=== PATIENT | female | born 2000 | race Caucasian/White ===

== ENCOUNTER 2024-04-19 17:31 | Emergency (ER) | payer OTHER ==
--- OUTSIDE RECORDS SUMMARY | 2024-04-19 17:37 | XMS REPORT | Continuity of Care Document ---
Author Name Unknown Address [address] [facility] [address] [place] [address] [facility] thconnect Address [address] [facility] [address] [place] [address] Care Team Providers Care Map Mounter Name Role Phone ZAY TAVERAS Primary Care Physician Unavailab le Zay Taveras Attending Clinician Unavailable Tiarra Benitez Attending Clinician Unavailable RADIOLOGY Attending Clinician Unavailable Radiology Attending Clinician Unavailable ZAY TAVERAS Admitting Clinician Unavailable Payers Payer Name Policy Type Policy Number Effective Date Expirati on Date Source [employer] [place] [id number] 2021 00:00:00 [facility] C1 [id number] [facility] Problems Condition Name Condition Details Condition Category Status Onset Date Resolution Date Last Treatment Date Treating Clinician Comments Source [id number] Decreased vision Problem [facility] Seasonal allergic rhinitis Seasonal allergic rhinitis Problem [facility] Migraine Migraines Problem Commo n [facility] Mixed anxiety and depressive disorder Depression with anxiety Problem [facility] [id number] Primary insomnia Problem [facility] [id number] Morbid (severe) obesity due to excess calories Problem [facility] Gastroesop hageal reflux disease GERD (gastroeso phageal reflux disease) Problem [facility] Hypothyroi dism Hypothyroi dism Problem [facility] NAFLD - Nonalcohol ic fatty liver disease Fatty liver disease, nonalcohol ic Problem [facility] [id number] Body mass index [BMI]40.0- 44.9, adult Problem [facility] Allergies, Adverse Reactions, Alerts Allergy Name Allergy Type Status Severity Reaction(s) Onset Date Inactive Date Treating Clinician Comments Source NO KNOWN ALLERGIE S Drug Class Active Univers [facility] Social History Social Habit Start Date Stop Date Quantity Comments Source History of Tobacco Use [facility] Sex Assigned At [facility] Smoking Status Start Date Stop Date Source Tobacco smoking consumption unknown [facility] Never Smoker [facility] Medications Ordered Medication Name Filled Medication Name Start Date Stop Date Current Medication? Ordering Clinician Indication Dosage Frequency Signature (SIG) Comments Components Source Azithromyci n 250 MG Azithromyci n 250 MG 4-0 03-21 00:00: 00 No QD Azithromyc in 250 MG Naproxen 500 MG Naproxen 500 MG No BID Naproxen 500 MG Blisovi 24 Fe 1-20 MG-MCG(24) Blisovi 24 Fe 1-20 MG-MCG(24) No 1{table t} QD Blisovi 24 Fe 1-20 MG-MCG(24) Acetaminoph en ER 650 MG Acetaminoph en ER 650 MG No 2{table ts_as_n eeded} TID Acetaminop hen ER 650 MG Levothyroxi ne Sodium 75 MCG Levothyroxi ne Sodium 75 MCG No QD Levothyrox ine Sodium 75 MCG Xyzal Allergy 24HR 5 MG Xyzal Allergy 24HR 5 MG No 1{table t_in_th e_eveni ng} QD Xyzal Allergy 24HR 5 MG Trintellix 10 MG Trintellix 10 MG No 1{table t} QD Trintellix 10 MG buPROPion HCl ER (XL) 150 MG buPROPion HCl ER (XL) 150 MG No 1{table t_in_th e_morni ng} QD buPROPion HCl ER (XL) 150 MG hydrOXYzine HCl 10 MG hydrOXYzine HCl 10 MG No 1{table t_as_ne eded} QD hydrOXYzin e HCl 10 MG OLANZapine 2.5 MG OLANZapine 2.5 MG No 1{table t} QD OLANZapine 2.5 MG Benzonatate 200 MG Benzonatate 200 MG No 1{capsu le_as_n eeded} Benzonatat e 200 MG methylPREDN ISolone 4 MG methylPREDN ISolone 4 MG No QD methylPRED NISolone 4 MG Immunizations Ordered Immunization Name Filled Immunization Name Date Status Comments Source Boostrix (Tdap) Boostrix (Tdap) 2022-05-20 14:31:00 Completed [facility] Boostrix (Tdap) Boostrix (Tdap) 2022-05-20 14:31:00 Completed [facility] Boostrix (Tdap) Boostrix (Tdap) 2022-05-20 14:31:00 Completed [facility] Boostrix (Tdap) Boostrix (Tdap) Unknown Completed [facility] Fluarix Fluarix Unknown Completed [facility] Boostrix (Tdap) Boostrix (Tdap) Unknown Completed [facility] Fluarix Fluarix Unknown Completed [facility] Boostrix (Tdap) Boostrix (Tdap) Unknown Completed [facility] Fluarix (IIV4) - SDS - 0.5mL Fluarix (IIV4) - SDS - 0.5mL Unknown Completed [facility] Boostrix (Tdap) Boostrix (Tdap) Unknown Completed [facility] Fluarix (IIV4) - SDS - 0.5mL Fluarix (IIV4) - SDS - 0.5mL Unknown Completed [facility] Boostrix (Tdap) Boostrix (Tdap) Unknown Completed [facility] Fluarix (IIV4) - SDS - 0.5mL Fluarix (IIV4) - SDS - 0.5mL Unknown Completed [facility] Boostrix (Tdap) Boostrix (Tdap) Unknown Completed [facility] Fluarix (IIV4) - SDS - 0.5mL Fluarix (IIV4) - SDS - 0.5mL Unknown Completed [facility] Boostrix (Tdap) Boostrix (Tdap) Unknown Completed [facility] Vital Signs Vital Name Observation Time Observation Value Comments S [place] height 2024-03-21 09:10:00 60.5 [in_i] Comm on [facility] weight 2024-03-21 09:10:00 235 [lb_av] Comm on [facility] bmi 2024-03-21 09:10:00 45.13 kg/m2 Comm on [facility] height 2023-09-15 13:00:00 60.5 [in_i] Comm on [facility] weight 2023-09-15 13:00:00 218 [lb_av] Comm on [facility] bmi 2023-09-15 13:00:00 41.87 kg/m2 Comm on [facility] height 2023-08-11 15:30:00 60.5 [in_i] Comm on [facility] weight 2023-08-11 15:30:00 228.0 [lb_av] Co mmon [facility] temperature 2023-08-11 15:30:00 97.5 [degF] Com mon [facility] bmi 2023-08-11 15:30:00 43.79 kg/m2 Comm on [facility] oximetry 2023-08-11 15:30:00 99 % Commo n [facility] respiratory rate 2023-08-11 15:30:00 16 /min [facility] blood pressure systolic 2023-08-11 15:30:00 128 mm[Hg] [facility] blood pressure diastolic 2023-08-11 15:30:00 86 mm[Hg] Common [facility] height 2023-03-30 15:50:00 60.5 [in_i] Comm on [facility] weight 2023-03-30 15:50:00 228.3 [lb_av] Co mmon [facility] temperature 2023-03-30 15:50:00 98.1 [degF] Com mon [facility] bmi 2023-03-30 15:50:00 43.85 kg/m2 Comm on [facility] oximetry 2023-03-30 15:50:00 99 % Commo n [facility] respiratory rate 2023-03-30 15:50:00 17 /min [facility] blood pressure systolic 2023-03-30 15:50:00 122 mm[Hg] Common [facility] blood pressure diastolic 2023-03-30 15:50:00 75 mm[Hg] [facility] height 2022-12-10 09:30:00 60.5 [in_i] Comm on [facility] weight 2022-12-10 09:30:00 230 [lb_av] Comm on [facility] temperature 2022-12-10 09:30:00 98 [degF] Comm on [facility] bmi 2022-12-10 09:30:00 44.17 kg/m2 Comm on [facility] blood pressure systolic 2022-12-10 09:30:00 130 mm[Hg] [facility] blood pressure diastolic 2022-12-10 09:30:00 72 mm[Hg] [facility] height 2022-09-09 14:30:00 60.5 [in_i] Comm on [facility] weight 2022-09-09 14:30:00 230.2 [lb_av] Co mmon [facility] temperature 2022-09-09 14:30:00 97.2 [degF] Com [facility] bmi 2022-09-09 14:30:00 44.21 kg/m2 Comm on [facility] oximetry 2022-09-09 14:30:00 99 % Commo n [facility] respiratory rate 2022-09-09 14:30:00 18 /min [facility] blood pressure systolic 2022-09-09 14:30:00 133 mm[Hg] Common [facility] t [facility] blood pressure diastolic 2022-09-09 14:30:00 79 mm[Hg] [facility] height 2022-05-20 14:10:00 60.5 [in_i] Comm on [facility] weight 2022-05-20 14:10:00 231 [lb_av] Comm on [facility] temperature 2022-05-20 14:10:00 97.7 [degF] Com mon [facility] bmi 2022-05-20 14:10:00 44.37 kg/m2 Comm on [facility] oximetry 2022-05-20 14:10:00 100 % Commo n [facility] respiratory rate 2022-05-20 14:10:00 16 /min [facility] blood pressure systolic 2022-05-20 14:10:00 135 mm[Hg] Common [facility] t [facility] blood pressure diastolic 2022-05-20 14:10:00 86 mm[Hg] [facility] height 2022-02-19 13:00:00 60 [in_i] Commo n [facility] weight 2022-02-19 13:00:00 228.0 [lb_av] Co mmon [facility] temperature 2022-02-19 13:00:00 98.1 [degF] Com mon [facility] bmi 2022-02-19 13:00:00 44.52 kg/m2 Comm on [facility] oximetry 2022-02-19 13:00:00 96 % Commo n [facility] respiratory rate 2022-02-19 13:00:00 17 /min [facility] blood pressure systolic 2022-02-19 13:00:00 130 mm[Hg] [facility] blood [facility] diastolic 2022-02-19 13:00:00 76 mm[Hg] Common [facility] height 2021-11-20 13:20:00 60 [in_i] Commo n [facility] weight 2021-11-20 13:20:00 226.1 [lb_av] Co mmon [facility] temperature 2021-11-20 13:20:00 97.7 [degF] Com mon [facility] bmi 2021-11-20 13:20:00 44.15 kg/m2 Comm on [facility] oximetry 2021-11-20 13:20:00 98 % Commo n [facility] respiratory rate 2021-11-20 13:20:00 18 /min [facility] blood pressure systolic 2021-11-20 13:20:00 134 mm[Hg] [facility] blood pressure diastolic 2021-11-20 13:20:00 87 mm[Hg] Common [facility] height 2021-08-08 13:00:00 60 [in_i] Commo n [facility] weight 2021-08-08 13:00:00 218 [lb_av] Comm on [facility] temperature 2021-08-08 13:00:00 98 [degF] Comm on [facility] bmi 2021-08-08 13:00:00 42.57 kg/m2 Comm on [facility] Procedures Procedure Date / Time Performed Performing Clinician Source XR SPINE THORACIC 2 VW 2022-05-20 20:48:19 Gerardo Taveras [facility] XR HIP 1 VW BILATERAL 2022-05-20 20:48:19 Alice Taveras [facility] XR PELVIS 3+ VW 2022-05-20 20:48:19 Zay Taveras Un [facility] XR CERVICAL SPINE 2 VW 2022-05-20 20:48:19 Gerardo Taveras [facility] XR LUMBAR SPINE 2 2022-05-20 20:48:19 Zay Taveras [facility] NOTICE OF BILLING PRACTICES FOR MEDICARE PATIENTS 2022-05-20 20:18:36 Doctor Unassigned, [facility] PATIENT FINANCIAL POLICY 2022-05-20 20:18:15 Doctor Unassigned, [facility] NO SHOW OR MISSED APPOINTMENT POLICY ACKNOWLEDGEMENT 2022-05-20 20:17:46 Doctor Unassigned, [facility] NOTICE OF PRIVACY PRACTICES 2022-05-20 20:17:28 Doctor Unassigned, [facility] CONSENT/REFUSAL FOR DIAGNOSIS AND TREATMENT 2022-05-20 20:17:07 Doctor Unassigned, [facility] ASSIGNMENT OF BENEFITS 2022-05-20 20:16:48 Docto r Unassigned, [facility] Encounters Start Date/Time End Date/Time Encounter Type Admission Type Attending [facility] Facility Care Department Encounter ID Source 2024-04-19 13:20:00 Outpatient Taveras, [facility] [id number] [facility] 2024-03-28 11:30:00 Outpatient Taveras, [facility] [id number] [facility] 2022-04-15 13:59:02 [facility] [id number] [facility] 2021-11-20 13:12:03 [facility] [id number] [facility] 2021-11-13 14:36:48 [facility] [id number] [facility] 2021-11-13 13:28:21 [facility] [id number] [facility] 2021-11-13 12:42:08 [facility] [id number] [facility] 2021-11-13 12:41:43 Outpatient Emmanuel, Tiarra STLMLC STL[facility] [id number] [facility] 2021-11-13 12:38:30 Outpatient Emmanuel, Tiarra STLMLC STLMLC [id number] [facility] 2021-11-13 12:36:16 Outpatient Emmanuel, Tiarra STLMLC STL[facility] [id number] [facility] 2021-11-13 12:26:38 Outpatient Emmanuel, Tiarra STLMLC STL[facility]C [id number] [facility] 2021-11-13 12:15:20 Outpatient Memanuel, Tiarra STLMLC ST[facility]C [id number] [facility] 2024-03-31 00:00:00 2024-03-31 00:00:00 (WEB) STLMLC STLMLC [id number] [facility] 2024-03-31 00:00:00 2024-03-31 00:00:00 (WEB) STLMLC STLMLC [id number] [facility] 2024-03-31 00:00:00 2024-03-31 00:00:00 (WEB) STLMLC STLMLC [id number] [facility] 2024-03-28 00:00:00 2024-03-28 00:00:00 (TEL) STLMLC STLMLC [id number] [facility] 2024-03-21 00:00:00 2024-03-21 00:00:00 OFFICE VISIT ESTAB PT LEVEL 3 STLMLC STLMLC [id number] [facility] 2024-03-21 00:00:00 2024-03-21 00:00:00 (TEL) STLMLC STLMLC [id number] [facility] 2023-09-15 00:00:00 2023-09-15 00:00:00 OFFICE VISIT ESTAB PT LEVEL 3 [facility]LML[facility] STLMLC [id number] [facility] 2023-08-11 00:00:00 2023-08-11 00:00:00 PREV VISIT EST AGE 18-39 STLMLC STLMLC [id number] [facility] 2023-07-30 00:00:00 2023-07-30 00:00:00 (TEL) STLMLC STLMLC [id number] [facility] 2023-03-30 00:00:00 2023-03-30 00:00:00 OFFICE VISIT ESTAB PT LEVEL 4 STLMLC STLMLC [id number] [facility] 2023-03-30 00:00:00 2023-03-30 00:00:00 (TEL) STLMLC STLMLC [id number] [facility] 2022-12-10 00:00:00 2022-12-10 00:00:00 OFFICE VISIT ESTAB PT LEVEL 4 STLMLC STLMLC [id number] [facility] 2022-09-09 00:00:00 2022-09-09 00:00:00 OFFICE VISIT ESTAB PT LEVEL 4 STLMLC STLMLC [id number] [facility] 2022-09-09 00:00:00 2022-09-09 00:00:00 (TEL) STLMLC STLMLC [id number] [facility] 2022-05-20 15:15:47 2022-05-20 23:59:00 Outpatient R RADIOLOGY [facility] [id number] [facility] 2022-05-20 15:15:00 2022-05-20 23:59:00 Hospital Encounter Radiology [facility] [id number] [facility] 2022-05-20 00:00:00 2022-05-20 00:00:00 (WELLNESS) Wellness Visit STLMLC STLMLC [id number] [facility] 2022-02-19 00:00:00 2022-02-19 00:00:00 OFFICE VISIT ESTAB PT LEVEL 4 STLMLC STLMLC [id number] [facility] 2022-01-23 00:00:00 2022-01-23 00:00:00 (TEL) STLMLC STLMLC [id number] [facility] 2021-11-20 00:00:00 2021-11-20 00:00:00 OFFICE VISIT ESTAB PT LEVEL 4 [facility]LMLC STLMLC [id number] [facility] 2021-08-08 00:00:00 2021-08-08 00:00:00 OFFICE VISIT EST PT LEVEL 3 [facility]C STLMLC [id number] [facility] 2021-05-08 00:00:00 2021-05-08 00:00:00 Outpatient STLMLC ST[facility]C [id number] [facility] 2021-02-05 00:00:00 2021-02-05 00:00:00 Outpatient STLMLC ST[facility]C [id number] [facility] 2021-01-04 00:00:00 2021-01-04 00:00:00 Outpatient STLMLC ST[facility] [id number] [facility] 2020-11-20 00:00:00 2020-11-20 00:00:00 Outpatient STLMLC ST[facility]C [id number] [facility] 2020-11-19 00:00:00 2020-11-19 00:00:00 Outpatient STLMLC ST[facility]C [id number] [facility] 2020-10-22 00:00:00 2020-10-22 00:00:00 Outpatient STLMLC ST[facility]C [id number] [facility] 2020-10-16 00:00:00 2020-10-16 00:00:00 Outpatient STLMLC ST[facility]C [id number] [facility] 2020-10-11 00:00:00 2020-10-11 00:00:00 Outpatient STLMLC STLMLC [id number] [facility] 2020-10-08 00:00:00 2020-10-08 00:00:00 Outpatient ST[facility]MLC [facility] [id number] [facility] 2019-01-28 23:19:00 2019-01-28 23:19:00 Emergency E [facility]SE [facility] [address] [facility] Results Test Description Test Time Test Comments Results Result Co mments Source HEMOGLOBIN [id number] 00:00:00* Test Item Value Reference Range Interpretation Comme nts HEMOGLOBIN A1c (test code = 4548-4) 5.3 % See_Comment [Automated messa ge] The system which generated this result transmitted reference range: 4.2-5.6 %. The reference range was not used to interpret this result as normal/abnormal. TSH REFLEX TO FREE [id number] 00:00:00* Test Item Value Reference Range Interpretation Comme nts TSH REFLEX TO FREE T4 (test code = 33837-7) 2.490 UIU/ML See_Comment [Automated messa ge] The system which generated this result transmitted reference range: 0.400-4.100 UIU/ML. The reference range was not used to interpret this result as normal/abnormal. URINALYSIS (CULTURE IF INDICATED)2023-08-11 00:00:00* Test Item Value Reference Range Interpretation Comme nts APPEARANCE (test code = 5767-9) TURBID CLEAR A BACTERIA (test code = 22539-2) NONE SEEN NONE SEEN BILIRUBIN (test code = 5770-3) NEGATIVE NEGATIVE CASTS, HYALINE (test code = 35459-5) NONE SEEN NONE-TRACE COLOR (test code = 5778-6) YELLOW YELLOW-STRAW CRYSTALS (test code = 5782-8) PRESENT NONE SEEN A EPITHELIAL CELLS (test code = 04938-1) 0-5 /HPF See_Comment [Automated messa ge] The system which generated this result transmitted reference range: 0-10 /HPF. The reference range was not used to interpret this result as normal/abnormal. GLUCOSE (test code = 5792-7) NEGATIVE NEGATIVE KETONES (test code = 5797-6) NEGATIVE NEGATIVE LEUKOCYTE ESTERASE (test code = 5799-2) NEGATIVE NEGATIVE NITRITE (test code = 5802-4) NEGATIVE NEGATIVE OCCULT BLOOD (test code = 43065-0) NEGATIVE NEGATIVE pH (test code = 5803-2) 5.5 5.0-9.0 PROTEIN (test code = 84868-4) NEGATIVE NEGATIVE RED BLOOD CELLS (test code = 80612-0) 0-2 /HPF See_Comment [Automated messa ge] The system which generated this result transmitted reference range: 0-2 /HPF. The reference range was not used to interpret this result as normal/abnormal. SPECIFIC GRAVITY (test code = 5811-5) 1.027 1.005-1.035 UROBILINOGEN (test code = 83212-2) 0.2 MG/DL See_Comment [Automated messa ge] The system which generated this result transmitted reference range: <=2.0 MG/DL. The reference range was not used to interpret this result as normal/abnormal. WHITE BLOOD CELLS (test code = 53442-3) 0-5 /HPF See_Comment [Automated messa ge] The system which generated this result transmitted reference range: 0-5 /HPF. The reference range was not used to interpret this result as normal/abnormal. LIPID PANEL WITH REFLEX DIRECT [id number] 00:00:00* Test Item Value Reference Range Interpretation Comme nts CALC LDL CHOL (test code = 80984-7) 116 MG/DL See_Comment H [Automated messa ge] The system which generated this result transmitted reference range: <100 MG/DL. The reference range was not used to interpret this result as normal/abnormal. CHOLESTEROL (test code = 2093-3) 183 MG/DL See_Comment [Automated messa ge] The system which generated this result transmitted reference range: <200 MG/DL. The reference range was not used to interpret this result as normal/abnormal. HDL CHOLESTEROL (test code = 2085-9) 46 MG/DL See_Comment [Automated messa ge] The system which generated this result transmitted reference range: >39 MG/DL. The reference range was not used to interpret this result as normal/abnormal. RISK RATIO LDL/HDL (test code = 68027-5) 2.52 RATIO See_Comment [Automated message] The system which generated this result transmitted reference range: <3.22 RATIO. The reference range was not used to interpret this result as normal/abnormal. TRIGLYCERIDES (test code = 2571-8) 104 MG/DL See_Comment [Automated messa ge] The system which generated this result transmitted reference range: <150 MG/DL. The reference range was not used to interpret this result as normal/abnormal. COMPREHENSIVE METABOLIC [id number] 00:00:00* Test Item Value Reference Range Interpretation Comme nts ALBUMIN (test code = 1751-7) 4.2 G/DL See_Comment [Automated messa ge] The system which generated this result transmitted reference range: 3.5-5.2 G/DL. The reference range was not used to interpret this result as normal/abnormal. ALKALINE PHOSPHATASE (test code = 6768-6) 86 U/L See_Comment [Automated message] The system which generated this result transmitted reference range: 40-115 U/L. The reference range was not used to interpret this result as normal/abnormal. BILIRUBIN, TOTAL (test code = 1975-2) 0.3 MG/DL See_Comment [Automated message] The system which generated this result transmitted reference range: <=1.2 MG/DL. The reference range was not used to interpret this result as normal/abnormal. BUN (test code = 3094-0) 8 MG/DL See_Comment [Automated messa ge] The system which generated this result transmitted reference range: 6-20 MG/DL. The reference range was not used to interpret this result as normal/abnormal. CALCIUM (test code = 96455-8) 9.1 MG/DL See_Comment [Automated messa ge] The system which generated this result transmitted reference range: 8.5-10.5 MG/DL. The reference range was not used to interpret this result as normal/abnormal. CALC A/G RATIO (test code = 1759-0) 1.7 RATIO See_Comment [Automated messa ge] The system which generated this result transmitted reference range: 1.0-2.6 RATIO. The reference range was not used to interpret this result as normal/abnormal. CALC BUN/CREAT (test code = 3097-3) 11 RATIO See_Comment [Automated messa ge] The system which generated this result transmitted reference range: 6-28 RATIO. The reference range was not used to interpret this result as normal/abnormal. CALC GLOBULIN (test code = 79005-4) 2.5 G/DL See_Comment [Automated messa ge] The system which generated this result transmitted reference range: 1.9-3.7 G/DL. The reference range was not used to interpret this result as normal/abnormal. CARBON DIOXIDE (test code = 1962-8) 22 MEQ/L See_Comment [Automated messa ge] The system which generated this result transmitted reference range: 19-31 MEQ/L. The reference range was not used to interpret this result as normal/abnormal. CHLORIDE (test code = 2075-0) 108 MEQ/L See_Comment H [Automated messa ge] The system which generated this result transmitted reference range: 95-107 MEQ/L. The reference range was not used to interpret this result as normal/abnormal. CREATININE (test code = 2160-0) 0.72 MG/DL See_Comment [Automated messa ge] The system which generated this result transmitted reference range: 0.60-1.30 MG/DL. The reference range was not used to interpret this result as normal/abnormal. eGFR (2020 CKD-EPI) (test code = 13933-7) 120 ML/MIN/1.73 See_Comment [Automated message] The system which generated this result transmitted reference range: >60 ML/MIN/1.73. The reference range was not used to interpret this result as normal/abnormal. GLUCOSE (test code = 1558-6) 100 MG/DL See_Comment H [Automated messa ge] The system which generated this result transmitted reference range: 70-99 MG/DL. The reference range was not used to interpret this result as normal/abnormal. POTASSIUM (test code = 2823-3) 4.1 MEQ/L See_Comment [Automated messa ge] The system which generated this result transmitted reference range: 3.5-5.4 MEQ/L. The reference range was not used to interpret this result as normal/abnormal. PROTEIN, TOTAL (test code = 2885-2) 6.7 G/DL See_Comment [Automated messa ge] The system which generated this result transmitted reference range: 6.1-8.3 G/DL. The reference range was not used to interpret this result as normal/abnormal. AST (test code = 1920-8) 14 U/L See_Comment [Automated messa ge] The system which generated this result transmitted reference range: 9-40 U/L. The reference range was not used to interpret this result as normal/abnormal. ALT (test code = 1742-6) 12 U/L See_Comment [Automated [employer]] The system which generated this result transmitted reference range: 5-40 U/L. The reference range was not used to interpret this result as normal/abnormal. SODIUM (test code = 2951-2) 143 MEQ/L See_Comment [Automated [employer]] The system which generated this result transmitted reference range: 133-146 MEQ/L. The reference range was not used to interpret this result as normal/abnormal.
[2024-04-19 18:21] LABS: Absolute Lymphocytes (CBC) 0.6 K/uL (0.7-4.9); Absolute Monocytes 0.7 K/uL (0.1-1.3); Absolute Neutrophil 10.3 K/uL (1.8-8.0); Basophils % 0.2 % (0-1.3); Hematocrit 41.7 % (36.0-45.0); Hemoglobin 13.8 g/dL (12.0-15.0); Lymphocytes % 5.3 % (15.3-44.8); MCH 26.9 pg (27.0-35.0); MCHC 33.1 g/dL (32.0-36.0); MCV 81.5 fL (80-100); MPV 7.9 fL (7.6-11.3); Neutrophils % 88.5 % (41.7-73.7); Nucleated Red Blood Cells % 0.1 % (0-0); Platelets 431 thou/uL (152-406); RBC Red Blood Cell Count 5.12 M/uL (3.86-4.86); Red Cell Distribution Width 14.9 % (12.1-15.2)
[2024-04-19] MEDS ORDERED: Magnesium Sulfate 2gm IVPB 2 G/50 ML BAG IV ONE (18:22)
[2024-04-19] MEDS ORDERED: NA CHLORIDE 0.9% 1,000 ML ONE ×2 (18:22→18:53)
[2024-04-19] MEDS ORDERED: ACETAMINOPHEN 500 MG TAB ONE (18:22)
[2024-04-19] MEDS ORDERED: CEFTRIAXONE 1000 MG/VIAL ONE (18:22)
[2024-04-19 18:26] LABS: PT Prothrombin Time 13.6 SECONDS (9.4-12.5); PTT, Activated Partial Thromb 33.1 SECONDS (24.3-36.9); Protime INR 1.24
[2024-04-19 18:40] LABS: ALT/SGPT 18 U/L (13-56); Albumin 3.8 g/dL (3.4-5.0); Alkaline Phosphatase 103 U/L (45-117); Anion Gap 9.3 mEq/L (5.0-15.0); BUN Blood Urea Nitrogen 12 mg/dL (7-18); Bicarbonate 25 mEq/L (21-32); Bilirubin Direct 0.2 mg/dL (0-0.2); Bilirubin Indirect, Calculated 0.5 mg/dL (0.2-0.8); Bilirubin Total 0.7 mg/dL (0.2-1.0); Creatine Phosphokinase 49 U/L (26-192); Glomerular Filtration Rate 87 ml/min (=/>90); Glucose Level 111 mg/dL (74-106); Potassium 3.3 mEq/L (3.5-5.1); Protein, Total 7.8 g/dL (6.4-8.2); Sodium Level 136 mEq/L (136-145)
[2024-04-19 18:41] LABS: AST/SGOT < 10 U/L (15-37)
[2024-04-19] MEDS ORDERED: KCL 20 MEQ/100 mL IVPB 100 ML IV ONE (18:48)
[2024-04-19 18:56] LABS: Thyroid Stimulating Hormone 2.63 uIU/mL (0.358-3.740)
[2024-04-19 19:55] LABS: Blood Morphology Comment NOT SEEN (NOT SEEN); Platelet Estimate INCR; White Blood Cell Scan OK (OK)
--- NOTE | 2024-04-19 20:52 | RAD REPORT ---
EXAM DESCRIPTION: Khadra Single View04/19/2024 6:07 pm CLINICAL HISTORY: cough COMPARISON: none FINDINGS: The lungs appear clear of acute infiltrate. The heart is normal size IMPRESSION: No acute abnormalities displayed
[2024-04-19 22:51] LABS: Specific Gravity > 1.030 (1.005-1.030)
[2024-04-19 22:53] LABS: Specific Gravity > 1.030 (1.005-1.030); Urine Clarity Extremely Turbid (Clear); Urine Color Yellow (Yellow)
[2024-04-19 22:54] LABS: Urine Bilirubin Negative (Negative); Urine Blood Negative (Negative); Urine Glucose Negative (Negative); Urine Ketones 2+ (Negative); Urine Protein 1+ (Negative); Urine Urobilinogen Normal mg/dL (0.2-1.0); Urine pH 5.5 (5.0-7.0)
[2024-04-19 22:55] LABS: Sqamous Epithelial <5 /HPF (None Seen); Urine Culture Reflex Order NOT NEEDED; Urine Micro Reflex YN NO BILL MICROSCOPIC; Urine Mucus 4+ /HPF (None Seen); Urine Nitrite Negative (Negative); Urine RBC <5 /HPF (None Seen); Urine WBC <5 /HPF (<5)
--- NOTE | 2024-04-19 23:59 | EDPHYS ---
Physician Documentation [facility] Name: Jeremiah Desouza Age: 24 yrs Sex: Female : 2000 Arrival Date: 04/19/2024 Time: 17:31 Bed 4 Private MD: ED Physician Priyank Prado HPI: 04/19 17:34 This 24 yrs old Female presents to ER via Unassigned with complaints of ec2 Nausea/Vomiting/Diarrhea, High heart rate. 17:56 Patient arrives today for evaluation of right-sided abdominal pain with associated ec2 nausea, vomiting, diarrhea. States that nausea and vomiting started last night, started having worsening abdominal pain throughout the night. Patient reports no fevers or chills, denies any cough or cold symptoms, denies urinary complaints.. 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 - Infectious Disease History:: Denies. - Social history:: Smoking status: Patient denies any tobacco usage or history of. ROS: 17:34 Constitutional: as per hpi ec2 Exam: 17:57 Constitutional: GEN: NAD Head: atraumatic Eyes: EOMI Ears: External ears are ec2 normal. CV: Tachycardia LUNGS: no respiratory distress ABD: non-distended, soft, tender in the right abdomen, no guarding, not rigid, negative flank bilaterally. SKIN: no evidence of rashes MSK: no evidence of trauma NEURO: moves all extremities equally Vital Signs: 17:55 BP 136 / 96; Pulse 142; Resp 20; Temp 99.7(O); Pulse Ox 98% on R/A; Weight 107.05 kg tl4 (M); Height 5 ft. 0 in. ; Pain 2/10; 18:31 BP 119 / 77; Pulse 117; ec2 18:32 BP 119 / 77; Pulse 118; Resp 16; Pulse Ox 97% on R/A; ld1 19:30 BP 119 / 84; Pulse 114; Resp 16 S; Pulse Ox 96% on R/A; jw7 21:00 BP 135 / 88; Pulse 109; Resp 24 S; Pulse Ox 99% on R/A; jw7 22:42 BP 136 / 86; Pulse 107; Resp 23; Temp 99.4; Pulse Ox 100% on R/A; Pain 0/10; bm8 23:44 BP 140 / 94; Pulse 100; Resp 22 S; Pulse Ox 100% on R/A; jw7 04/20 00:19 BP 138 / 90; Pulse 99; Resp 23 S; Pulse Ox 100% on R/A; jw7 04/19 17:55 Body Mass Index 46.09 (107.05 kg, 152.4 cm) tl4 04/19 17:55 Pain Scale: Adult tl4 22:42 Pain Scale: Adult bm8 [place] Coma Score: 04/19 22:42 Eye Response: spontaneous(4). Motor Response: obeys commands(6). Verbal Response: bm8 oriented(5). Total: 15. MDM: 17:33 Patient medically screened. ec2 17:34 Data reviewed: vital signs. ec2 17:57 ED course: Patient arrives today for evaluation of right-sided abdominal pain. ec2 Examination remarkable for abdominal findings as noted above along with tachycardia. Will obtain lab work, EKG, CT abdomen pelvis and urine studies. Differential diagnosis includes ureteral stone, pyelonephritis, appendicitis.. 18:04 ED course: EKG independently reviewed and interpreted by me, shows sinus tachycardia, ec2 rate of 137, no acute ST segment elevations, intervals are pertinent for QTc prolongation at 558. Will give the patient 2 g of magnesium. Pending rest of electrolytes.. 18:43 ED course: Metabolic profile shows slight hypokalemia with a potassium of 3.3. CBC ec2 shows slight leukocytosis at 11.7, LFTs are nonactionable, lactic acid is slightly elevated at 2.3 . 20:10 Transition of care: After a detail discussion of the patient's case, care is ec2 transferred to Priyank Prado MD. ED course: Patient signed out with pending CT imaging as well as urine studies.. 04/20 00:01 Differential diagnosis: Nonspecific abd pain, gastritis, viral gastroenteritis, sp4 gastroenteritis. Consideration of Admission/Observation Escalation of care including admission/observation considered. ED course: FINDINGS: LUNG BASES: No basilar consolidation or effusions. LIVER: Normal in size. Normal attenuation. No focal masses. HEPATOBILIARY: Cholelithiasis. No intra- or extrahepatic ductal dilatation. SPLEEN: Normal size. PANCREAS: Normal size and contour. No focal mass. ADRENAL GLANDS: Normal size. No adrenal masses. KIDNEYS: Bilateral kidneys are normal in size without obstructing calculi or hydronephrosis. No nephrolithiasis. No significant cysts are present. No focal solid mass. BOWEL AND MESENTERY: Fluid-filled nondistended colon especially right colon. No small or large bowel dilatation. No colonic diverticulosis. Normal appendix. No abnormal mesenteric lymphadenopathy. No free fluid or pneumoperitoneum. RETROPERITONEUM: Normal caliber abdominal aorta without aneurysm. No abnormal retroperitoneal lymphadenopathy. PELVIS: Urinary bladder is unremarkable. Uterus and adnexal regions are unremarkable. ABDOMINAL WALL: The abdominal wall is intact. BONES: No suspicious osseous lytic or blastic lesions seen. IMPRESSION: 1. Fluid-filled nondistended colon especially right colon, suggestive of a diarrheal illness/enterocolitis. 2. Otherwise, no other acute intra-abdominal or pelvic disease. Normal appendix. 3. Cholelithiasis. . 04/19 17:34 Order name: Basic Metabolic Panel; Complete Time: 18:45 ec2 04/19 17:34 Order name: CBC with Diff; Complete Time: 20:09 ec2 04/19 17:34 Order name: LFT's; Complete Time: 18:45 ec2 04/19 17:34 Order name: Test, Urine; Complete Time: 23:03 ec2 04/19 17:34 Order name: UAM; Complete Time: 23:03 ec2 04/19 17:36 Order name: CK; Complete Time: 18:45 ec2 04/19 17:56 Order name: Blood Culture Adult (2) ec2 04/19 17:56 Order name: Lactate w/ 2H reflex if indic.; Complete Time: 18:42 ec2 04/19 17:56 Order name: Protime (+inr); Complete Time: 18:42 ec2 04/19 17:56 Order name: Ptt, Activated; Complete Time: 18:42 ec2 04/19 17:57 Order name: TSH; Complete Time: 18:58 ec2 04/19 17:57 Order name: T4 Free; Complete Time: 18:58 ec2 04/19 19:55 Order name: CBC Smear Scan; Complete Time: 20:09 EDMS 04/19 20:39 Order name: Ghost Lactate-NO COLLECT Timer; Complete Time: 20:54 EDMS 04/19 21:48 Order name: Lactate Sepsis 2 HR Follow-up; Complete Time: 22:17 EDMS 04/19 17:34 Order name: XRAY Chest (1 view); Complete Time: 20:54 ec2 04/19 17:56 Order name: CT Abd/Pelvis - IV Contrast Only ec2 04/19 17:34 Order name: EKG; Complete Time: 17:35 ec2 04/19 17:34 Order name: Cardiac monitoring; Complete Time: 17:59 ec2 04/19 17:34 Order name: EKG - Nurse/Tech; Complete Time: 17:59 ec2 04/19 17:34 Order name: IV Saline Lock; Complete Time: 17:59 ec2 04/19 17:34 Order name: Labs collected and sent; Complete Time: 18:00 ec2 04/19 17:34 Order name: O2 Per Protocol; Complete Time: 18:00 ec2 04/19 17:34 Order name: O2 Sat Monitoring; Complete Time: 18:00 ec2 04/19 17:56 Order name: Accucheck; Complete Time: 17:59 ec2 04/19 17:56 Order name: IV Saline Lock - Large Bore; Complete Time: 17:59 ec2 04/19 17:56 Order name: Vital Signs; Complete Time: 17:59 ec2 04/19 22:43 Order name: Straight Cath - Urine; Complete Time: 22:43 bm8 Administered Medications: 04/19 17:37 CANCELLED (Physician Discretion): droperidol2.5 mg IVP once ec2 18:31 Drug: NS 0.9% IV 1000 ml IV at 1 bolus Per protocol; 1000 mL bolus Route: IV; Rate: 1 ld1 bolus; Site: right antecubital; 22:45 Follow up: Response: No adverse reaction; IV Status: Completed infusion; IV Intake: bm8 1000ml 18:31 Drug: Rocephin IV 1 grams IV at calculated rate once; Given slow IV push per pharmacy ld1 instructions Route: IV; Rate: calculated rate; Site: right antecubital; 22:44 Follow up: Response: No adverse reaction; IV Status: Completed infusion; IV Intake: [id number] 18:31 Drug: Magnesium Sulfate IVPB 2 grams IVPB once over 30 mins Route: IVPB; Infused Over: ld1 30 mins; Site: right antecubital; 22:44 Follow up: Response: No adverse reaction; IV Status: Completed infusion; IV Intake: bm8 100ml 18:31 Not Given (Patient Refused): [id number] mg PO once ld1 19:26 Drug: Potassium Chloride IV 20 mEq IV at calculated rate once; administer over 1-2 jw7 hours Route: IV; Rate: calculated rate; Site: right antecubital; 22:44 Follow up: Response: No adverse reaction; IV Status: Completed infusion; IV Intake: [id number] 19:26 Drug: NS 0.9% IV 1000 ml IV at 1 bolus Per protocol; 1000 mL bolus Route: IV; Rate: 1 jw7 bolus; Site: right antecubital; 22:44 Follow up: Response: No adverse reaction; IV Status: Completed infusion; IV Intake: bm8 1000ml Disposition Summary: 04/19/24 23:59 Discharge Ordered Notes: Location: Home sp4 Problem: new sp4 Symptoms: have improved sp4 Condition: Stable sp4 Diagnosis - Acute gastroenteritis, nausea vomiting and diarrhea sp4 Followup: sp4 - With: Private Physician - When: 7 - 10 days - Reason: Recheck today's complaints Discharge Instructions: - Discharge Summary Sheet sp4 - Viral Gastroenteritis, Adult, [id number] sp4 - Clear Liquid Diet, Adult, [id number] sp4 Forms: - Patient Portal Instructions sp4 Prescriptions: - Lomotil 2.5-0.025 mg Oral tablet - take 1 tablet ORAL route every 6 hours As needed; 30 tablet; Refills: 0, sp4 Product Selection Permitted - dicyclomine 20 mg Oral tablet - take 2 tablets ORAL route 3 times per day PRN abdominal pain; 30 tablet; sp4 Refills: 0, Product Selection Permitted - ondansetron 8 mg Oral Tablet,disintegrating - take 1 tablet ORAL route every 8 hours PRN nausea; 30 tablet; Refills: 0, sp4 Product Selection Permitted Signatures: [facility] EDBridgette Maloney RN RN ld1 Andreina Cooney RN RN jw7 Lorena Awad RN RN kc6 Priyank Prado MD MD sp4 Emerson Allen MD MD ec2 Akira Broderick, RN RN tl4 Joseph Prieto, RN RN bm8 Corrections: (The following items were deleted from the chart) 17:37 17:34 Droperidol IVP 2.5 mg IVP once ordered. ec2 ec2 17:37 17:34 Misc. Order ordered. ec2 ec2 17:38 17:34 Patient with history of schizophrenia and bipolar disorder arrives today for ec2 evaluation of nausea and vomiting as well as concern for heat exhaustion. EMS reports that patient had walked 1.5 hours in the heat and subsequently became overheated, initially picked her up with tachycardia with rates in the 130s, subsequently give the patient crystalloid with improvement in her tachycardia. Patient reports that she been having nausea and vomiting on and off for several weeks. Reports poor fluid intake today.. ec2 17:38 17:34 Patient with history of schizophrenia and bipolar disorder arrives today for ec2 evaluation of nausea and vomiting as well as concern for heat exhaustion. EMS reports that patient had walked 1.5 hours in the heat and subsequently became overheated, initially picked her up with tachycardia with rates in the 130s, subsequently give the patient crystalloid with improvement in her tachycardia. Patient reports that she been having nausea and vomiting on and off for several weeks. Reports poor fluid intake today.. ec2 17:39 17:34 ED course: Patient arrives today for evaluation of heat exposure as well as ec2 nausea and vomiting. Examination remarkable for well-appearing nontoxic and appears otherwise in no acute distress with reassuring hemodynamics. Will obtain lab work, EKG, give the patient crystalloid as well as droperidol for her nausea and vomiting. Differential diagnosis includes heat exhaustion, rhabdomyolysis, renal dysfunction, electrolyte disturbances.. ec2 17:39 17:34 Constitutional: GEN: NAD Head: atraumatic Eyes: EOMI Ears: External ears are ec2 normal. CV: regular rate LUNGS: no respiratory distress ABD: non-distended SKIN: no evidence of rashes MSK: no evidence of trauma NEURO: moves all extremities equally ec2 17:39 17:36 Allergies: No Known Allergies; [place] [id number] 17:36 Home Meds: None; [place] [id number] 17:36 PMHx: Bipolar disorder; [place] [id number] 17:36 PMHx: Schizophrenia; aimee martinez6 39 17:36 PSHx: None; aimee martinez6 39 17:36 Infectious Disease History: Denies. aimee yu 39 17:36 Social history: Smoking status: Reported history of juuling and/or vaping. aimee yu :39 17:36 Immunization history: Adult Immunizations up to date, aimee yu 17:57 17:57 Abdomen Pelvis W Con+CT.RAD.BRZ ordered. EDMS EDMS
--- NOTE | 2024-04-19 23:59 | ER ---
Nurse's Notes [facility] Name: Jeremiah Desouza Age: 24 yrs Sex: Female : 2000 Arrival Date: 04/19/2024 Time: 17:31 Bed 4 Private MD: Diagnosis: Acute gastroenteritis, nausea vomiting and diarrhea Presentation: 04/19 17:55 Chief complaint: Patient states: Patient complains of right lower quadrant pain, tl4 nausea, vomiting, diarrhea, and fatigue since last night. Pt evaluated at and sent here for tachycardia, rate 180s. Pt denies chest pressure, palpitations. Pt denies any history of similar symptoms. Coronavirus screen: At this time, the client does not indicate any symptoms associated with coronavirus-19. Ebola Screen: No symptoms or risks identified at this time. Initial Sepsis Screen: Does the patient meet any 2 criteria? No. Patient's initial sepsis screen is negative. Does the patient have a suspected source of infection? No. Patient's initial sepsis screen is negative. Risk Assessment: Do you want to hurt yourself or someone else? Patient reports no desire to harm self or others. Onset of symptoms was April 18, 2024. 17:55 Method Of Arrival: Ambulatory tl4 17:55 Acuity: ESCOBAR 3 tl4 Triage Assessment: 17:59 General: Appears in no apparent distress. Behavior is cooperative. Pain: Complains of tl4 pain in abdomen. EENT: No signs and/or symptoms were reported regarding the EENT system. Neuro: Level of Consciousness is awake, alert, obeys commands, Oriented to person, place, time, situation, Moves all extremities. Full function Gait is steady, Speech is normal. Cardiovascular: Reports fatigue, Denies chest pain, diaphoresis, Rhythm is sinus tachycardia. Respiratory: Airway is patent Respiratory effort is even, unlabored, Respiratory pattern is regular, symmetrical, Breath sounds are clear bilaterally. GI: Reports lower abdominal pain, diarrhea, nausea, vomiting. : No signs and/or symptoms were reported regarding the genitourinary system. Derm: No signs and/or symptoms reported regarding the dermatologic system. Musculoskeletal: No signs and/or symptoms reported regarding the musculoskeletal system. 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 - Infectious Disease History:: Denies. - Social history:: Smoking status: Patient denies any tobacco usage or history of. Screenin:54 [facility] ED Fall Risk Assessment (Adult) History of falling in the last 3 months, tl4 including since admission No falls in past 3 months (0 pts) Confusion or Disorientation No (0 pts) Intoxicated or Sedated No (0 pts) Impaired Gait No (0 pts) Mobility Assist Device Used No (0 pt) Altered Elimination No (0 pt) Score/Fall Risk Level 0 - 2 = Low Risk Oriented to surroundings, Maintained a safe environment, Educated pt \T\ family on fall prevention, incl call for assistance when getting out of bed, Assessed \T\ reinforced patient's understanding of fall precautions. Abuse screen: Denies threats or abuse. Denies injuries from another. Nutritional screening: No deficits noted. Tuberculosis screening: No symptoms or risk factors identified. Assessment: 18:32 General: Appears in no apparent distress. uncomfortable, Behavior is calm, cooperative, ld1 appropriate for age. Pain: Complains of pain in abdomen Pain does not radiate. Pain currently is 8 out of 10 on a pain scale. Quality of pain is described as throbbing, Pain began suddenly, Is continuous. Neuro: Level of Consciousness is awake, alert, obeys commands, Oriented to person, place, time, situation. Cardiovascular: Capillary refill < 3 seconds Patient's skin is warm and dry. Rhythm is sinus tachycardia. Respiratory: Airway is patent Respiratory effort is even, unlabored. GI: Abdomen is round obese, Reports lower abdominal pain, upper abdominal pain, nausea, vomiting. : No signs and/or symptoms were reported regarding the genitourinary system. EENT: No signs and/or symptoms were reported regarding the EENT system. Derm: No signs and/or symptoms reported regarding the dermatologic system. Musculoskeletal: No signs and/or symptoms reported regarding the musculoskeletal system. 19:00 General: Appears in no apparent distress. comfortable, Behavior is calm, cooperative, jw7 appropriate for age. Pain: Complains of pain in abdomen Pain does not radiate. Pain currently is 3 out of 10 on a pain scale. Quality of pain is described as throbbing, Pain began suddenly, Is continuous. Neuro: Level of Consciousness is awake, alert, obeys commands, Oriented to person, place, time, situation. Cardiovascular: Heart tones S1 S2 present Capillary refill < 3 seconds Clubbing of nail beds is absent JVD is absent Patient's skin is warm and dry. Rhythm is sinus tachycardia. Respiratory: Airway is patent Trachea midline Respiratory effort is even, unlabored, Respiratory pattern is regular, symmetrical. GI: Abdomen is round obese, Reports lower abdominal pain, upper abdominal pain, nausea, vomiting. : No deficits noted. No signs and/or symptoms were reported regarding the genitourinary system. EENT: No deficits noted. No signs and/or symptoms were reported regarding the EENT system. Derm: Skin is intact, is healthy with good turgor, Skin is dry, Skin is normal, Skin temperature is warm. Musculoskeletal: Circulation, motion, and sensation intact. Range of motion: intact in all extremities. 20:00 Reassessment: Patient appears in no apparent distress at this time. No changes from jw7 previously documented assessment. Patient and/or family updated on plan of care and expected duration. Pain level reassessed. Patient is alert, oriented x 3, equal unlabored respirations, skin warm/dry/pink. 21:00 Reassessment: Patient appears in no apparent distress at this time. No changes from jw7 previously documented assessment. Patient and/or family updated on plan of care and expected duration. Pain level reassessed. Patient is alert, oriented x 3, equal unlabored respirations, skin warm/dry/pink. 22:42 Reassessment: Patient appears in no apparent distress at this time. Patient and/or bm8 family updated on plan of care and expected duration. Pain level reassessed. Patient is alert, oriented x 3, equal unlabored respirations, skin warm/dry/pink. Patient denies pain at this time. Patient states feeling better. Patient states symptoms have improved. 23:30 Reassessment: Patient appears in no apparent distress at this time. No changes from jw7 previously documented assessment. Patient and/or family updated on plan of care and expected duration. Pain level reassessed. Patient is alert, oriented x 3, equal unlabored respirations, skin warm/dry/pink. 04/20 00:19 Reassessment: Patient appears in no apparent distress at this time. No changes from jw7 previously documented assessment. Patient and/or family updated on plan of care and expected duration. Pain level reassessed. Patient is alert, oriented x 3, equal unlabored respirations, skin warm/dry/pink. Vital Signs: 04/19 17:55 BP 136 / 96; Pulse 142; Resp 20; Temp 99.7(O); Pulse Ox 98% on R/A; Weight 107.05 kg tl4 (M); Height 5 ft. 0 in. ; Pain 2/10; 18:31 BP 119 / 77; Pulse 117; ec2 18:32 BP 119 / 77; Pulse 118; Resp 16; Pulse Ox 97% on R/A; ld1 19:30 BP 119 / 84; Pulse 114; Resp 16 S; Pulse Ox 96% on R/A; jw7 21:00 BP 135 / 88; Pulse 109; Resp 24 S; Pulse Ox 99% on R/A; jw7 22:42 BP 136 / 86; Pulse 107; Resp 23; Temp 99.4; Pulse Ox 100% on R/A; Pain 0/10; bm8 23:44 BP 140 / 94; Pulse 100; Resp 22 S; Pulse Ox 100% on R/A; jw7 04/20 00:19 BP 138 / 90; Pulse 99; Resp 23 S; Pulse Ox 100% on R/A; jw7 04/19 17:55 Body Mass Index 46.09 (107.05 kg, 152.4 cm) tl4 04/19 17:55 Pain Scale: Adult tl4 22:42 Pain Scale: Adult bm8 [place] Coma Score: 04/19 22:42 Eye Response: spontaneous(4). Motor Response: obeys commands(6). Verbal Response: bm8 oriented(5). Total: 15. ED Course: 17:32 Patient arrived in ED. ec2 17:33 Emerson Allen MD is Attending Physician. ec2 17:34 Lorena Awad, YAO is Primary Nurse. kc6 17:36 Triage completed. kc6 17:54 Patient has correct armband on for positive identification. Placed in gown. Bed in low tl4 position. Call light in reach. Side rails up X 1. Adult w/ patient. Provided Education on: ed process, call ortiz. Client placed on continuous cardiac and pulse oximetry monitoring. NIBP monitoring applied. awake overnight monitor on. Door closed. Noise minimized. Moved to private room. Warm blanket given. Pillow given. 17:59 Bridgette Bernstein, YAO is Primary Nurse. ld1 18:00 Inserted saline lock: 20 gauge in right antecubital area, using aseptic technique. ld1 Blood collected. 18:00 EKG done, by ED staff, reviewed by Emerson Allen MD. ap3 18:09 XRAY Chest (1 view) In Process Unspecified. EDMS 18:32 No provider procedures requiring assistance completed. ld1 19:00 Arm band placed on. jw7 20:10 Attending Physician role handed off by Emerson Allen MD sp4 20:10 Priyank Prado MD is Attending Physician. sp4 21:18 Radiology exam delayed due to test not completed at this time. nj 21:21 repeat lac sent. bm8 22:42 Straight cath inserted, using sterile technique, 12 Fr. Specimen obtained. Patient bm8 tolerated well. 23:17 CT Abd/Pelvis - IV Contrast Only In Process Unspecified. EDMS 0703 00:19 IV discontinued, intact, bleeding controlled, No redness/swelling at site. Pressure jw7 dressing applied. Administered Medications: 04/19 17:37 CANCELLED (Physician Discretion): droperidol2.5 mg IVP once ec2 18:31 Drug: NS 0.9% IV 1000 ml IV at 1 bolus Per protocol; 1000 mL bolus Route: IV; Rate: 1 ld1 bolus; Site: right antecubital; 22:45 Follow up: Response: No adverse reaction; IV Status: Completed infusion; IV Intake: bm8 1000ml 18:31 Drug: Rocephin IV 1 grams IV at calculated rate once; Given slow IV push per pharmacy ld1 instructions Route: IV; Rate: calculated rate; Site: right antecubital; 22:44 Follow up: Response: No adverse reaction; IV Status: Completed infusion; IV Intake: [id number] 18:31 Drug: Magnesium Sulfate IVPB 2 grams IVPB once over 30 mins Route: IVPB; Infused Over: ld1 30 mins; Site: right antecubital; 22:44 Follow up: Response: No adverse reaction; IV Status: Completed infusion; IV Intake: bm8 100ml 18:31 Not Given (Patient Refused): [id number] mg PO once ld1 19:26 Drug: Potassium Chloride IV 20 mEq IV at calculated rate once; administer over 1-2 jw7 hours Route: IV; Rate: calculated rate; Site: right antecubital; 22:44 Follow up: Response: No adverse reaction; IV Status: Completed infusion; IV Intake: [id number] 19:26 Drug: NS 0.9% IV 1000 ml IV at 1 bolus Per protocol; 1000 mL bolus Route: IV; Rate: 1 jw7 bolus; Site: right antecubital; 22:44 Follow up: Response: No adverse reaction; IV Status: Completed infusion; IV Intake: bm8 1000ml Medication: 17:55 VIS not applicable for this client. tl4 Intake: 22:44 IV: 1000ml; Total: 1000ml. bm8 22:44 IV: 50ml; Total: 1050ml. bm8 22:44 IV: 100ml; Total: 1150ml. bm8 22:44 IV: 50ml; Total: 1200ml. bm8 22:45 IV: 1000ml; Total: 2200ml. bm8 Outcome: 23:59 Discharge ordered by . sp4 04/20 00:18 Discharged to home ambulatory, jw7 Condition: stable Discharge instructions given to patient, Instructed on discharge instructions, follow up and referral plans. medication usage, Demonstrated understanding of instructions, follow-up care, medications, Prescriptions given X 3, 00:21 Patient left the ED. jw7 Signatures: Dispatcher [employer] EDMS Bipin Myers Amanda, RN RN ap3 Bridgette Bernstein RN RN ld1 Andreina Cooney RN RN jw7 Lorena Awad RN RN kc6 Priyank Prado MD MD spEmerson Sena MD MD ec2 Akira Broderick RN RN tl4 Joseph Prieto RN RN bm8 Corrections: (The following items were deleted from the chart) 04/19 17:39 17:35 Chief complaint: EMS states: they were toned out for dizziness and n/v. pt states kc6 the n/v has been ongoing for 2 weeks and the dizziness started today. kc6 17:39 17:35 Coronavirus screen: At this time, the client does not indicate any symptoms kc6 associated with coronavirus-19. 6 17:39 17:35 Ebola Screen: No symptoms or risks identified at this time. 6 [facility] 17:39 17:35 Initial Sepsis Screen: Does the patient meet any 2 criteria? No. Patient's kc6 initial sepsis screen is negative. Does the patient have a suspected source of infection? No. Patient's initial sepsis screen is negative. 6 17:39 17:35 Risk Assessment: Do you want to hurt yourself or someone else? Patient reports no kc6 desire to harm self or others. 6 17:39 17:35 Onset of symptoms was April 19, 2024 [place] [id number] 17:39 17:35 Care prior to arrival: IV initiated. 20 GA, in the right antecubital area, kc Glucose check: 118 [facility] 17:39 17:35 Method Of Arrival: EMS: [facility] [place] [address] 17:39 17:35 BP 130 / 108; Pulse 97bpm; Resp 19bpm; Spontaneous; Pulse Ox 96% RA; Temp 99.3F kc6 Axillary; 78.93 kg Reported; Height 4 ft. 11 in. Reported; BMI: 35.1; 6 17:39 17:35 Acuity: ESCOBAR 3 [place] [address] 17:39 17:36 Allergies: No Known Allergies; [place] [address] 17:39 17:36 Home Meds: None; 6 [facility] 17:39 17:36 PMHx: Bipolar disorder; 6 [facility] 17:39 17:36 PMHx: Schizophrenia; 6 [facility] 17:39 17:36 PSHx: None; [place] [id number] 17:39 17:36 Infectious Disease History: Denies. [place] [address] 17:39 17:36 Social history: Smoking status: Reported history of juuling and/or vaping. [place] [address] 17:39 17:36 Immunization history: Adult Immunizations up to date, [place] [address] 17:40 17:36 General: Appears in no apparent distress. comfortable, obese, well groomed, well kc6 developed, Behavior is calm, cooperative, appropriate for age, [facility] 17:40 17:36 Pain: Complains of pain in abdomen 6 [facility] 17:40 17:36 EENT: No signs and/or symptoms were reported regarding the EENT system. 6 [facility] 17:40 17:36 Neuro: Level of Consciousness is awake, alert, obeys commands, Oriented to kc person, place, time, situation, Appropriate for age Reports dizziness, a syncopal episode [facility] 17:40 17:36 Cardiovascular: Capillary refill < 3 seconds [place] [id number] 17:40 17:36 Respiratory: Airway is patent Trachea midline Respiratory effort is even, kc6 unlabored, Respiratory pattern is regular, symmetrical, [facility] :40 17:36 GI: Reports lower abdominal pain, nausea, vomiting, Patient currently denies kc diarrhea, [facility] 17:40 17:36 : No signs and/or symptoms were reported regarding the genitourinary system. [facility] 17:40 17:36 Derm: No signs and/or symptoms reported regarding the dermatologic system. Skin [facility] is intact, is healthy with good turgor, Skin is pink, warm \T\ dry. [facility] :40 17:36 Musculoskeletal: No signs and/or symptoms reported regarding the musculoskeletal [facility] system. Circulation, motion, and sensation intact. Capillary refill < 3 seconds, Range of motion: intact in all extremities, [facility] :40 17:36 Arm band placed on [place] [id number] 17:40 17:38 Reassessment: please see triage [place] [id number] :40 17:38 Maintain EMS IV. Dressing intact. Good blood return noted. Site clean \T\ dry. [facility] Gauge \T\ site: 20G RAC. [facility] 17:40 17:38 Tuberculosis screening: No symptoms or risk factors identified. [place] [address] 17:40 17:38 Nutritional screening: No deficits noted. [place] [address] 17:40 17:38 Abuse screen: Denies threats or abuse. Denies injuries from another. [place] [address] 17:40 17:38 [facility] ED Fall Risk Assessment (Adult) History of falling in the last 3 months, [facility] including since admission No falls in past 3 months (0 pts) Confusion or Disorientation No (0 pts) Intoxicated or Sedated No (0 pts) Impaired Gait No (0 pts) Mobility Assist Device Used No (0 pt) Altered Elimination No (0 pt) Score/Fall Risk Level 0 - 2 = Low Risk [facility] 18:31 18:31 Acetaminophen PO 1000 mg PO ld1 ld1 20:48 19:10 BP 119 / 84; Pulse 114bpm; Resp 16bpm; Spontaneous; Pulse Ox 96% RA; jw7 jw7
[2024-04-20 00:52] VITALS: BP 138/90; TEMP 99.4; O2SAT 100
--- NOTE | 2024-04-20 13:35 | RAD REPORT ---
EXAM DESCRIPTION: CT - Abdomen Pelvis W Contrast - 04/20/2024 6:48 am CLINICAL HISTORY: 24 years Female, R sided abd pain TECHNIQUE: Helical CT axial images are obtained from the lung bases to the pubic symphysis with IV c ontrast. No oral contrast was administered. Multiplanar reconstruction. This exam was performed accor ding to our departmental dose-optimization program, which includes automated exposure control, adjust ment of the mA and/or kV according to patient size and/or use of iterative reconstruction technique. COMPARISON: None. FINDINGS: LUNG BASES: No basilar consolidation or effusions. LIVER: Normal in size. Normal attenuation. No focal masses. HEPATOBILIARY: Cholelithiasis. No intra- or extrahepatic ductal dilatation. SPLEEN: Normal size. PANCREAS: Normal size and contour. No focal mass. ADRENAL GLANDS: Normal size. No adrenal masses. KIDNEYS: Bilateral kidneys are normal in size without obstructing calculi or hydronephrosis. No nep hrolithiasis. No significant cysts are present. No focal solid mass. BOWEL AND MESENTERY: Fluid-filled nondistended colon especially right colon. No small or large bowel dilatation. No colonic diverticulosis. Normal appendix. No abnormal mesenteric lymphadenopathy. N o free fluid or pneumoperitoneum. RETROPERITONEUM: Normal caliber abdominal aorta without aneurysm. No abnormal retroperitoneal lymphad enopathy. PELVIS: Urinary bladder is unremarkable. Uterus and adnexal regions are unremarkable. ABDOMINAL WALL: The abdominal wall is intact. BONES: No suspicious osseous lytic or blastic lesions seen. IMPRESSION: 1. Fluid-filled nondistended colon especially right colon, suggestive of a diarrheal i llness/enterocolitis. 2. Otherwise, no other acute intra-abdominal or pelvic disease. Normal appendix. 3. Cholelithiasis. Electronically signed by: Benjie Higuera MD 04/19/2024 11:35 PM CDT RP N Due to temporary technical issues with the PACS/Fluency reporting system, reports are being signed by the in house radiologist without review as a courtesy to ensure prompt reporting. The interpreting r adiologist is fully responsible for the content of the report.
--- NOTE | 2024-04-21 16:09 | EKG ---
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
== END 2024-04-20 00:21 | disposition home or self-care (01) ==
LOC: ER 17:31
DX: K52.9 Noninfective gastroenteritis and colitis, unspecified (principal)
CPT/HCPCS: 96365; 96367; 96368; 93005; 87040 ×2; 85025; 81001; 80048; 36415; 82550; 81025; 85610; 80076; 83605 ×2; 85730; 84443; 84439; 74177; 71045; 51702; 99285; 96366; Q9967; J3480; J3475; J7030 ×2; J0696